=== PATIENT | female | born 1960 | race Caucasian/White ===

== ENCOUNTER 2018-02-23 04:34 | Inpatient (IN) | payer OTHER ==
[~2018-02-23] VITALS: Ht 157.5 cm; Wt 65.3 kg
--- NOTE | 2018-02-23 10:00 | NUR ---
WEB PRODUCER NOTES RECEIVED PATIENT DIRECT ADMIT FROM [facility]. PATIENT IS A/OX4, ABLE TO MAKE NEEDS KNOWN, AMBULATORY. DX OF CHOLECYSTITIS WITH CHOLELITHIASIS. NOT IN ANY FORM OF DISTRESSS, NO SOB. DENIED PAIN OR DISCOMFORT AT THIS TIME. COMPLAINTS OF N/V, WILL NOTIFY MD. IV ACCESS ON LEFT AC INTACT AND PATENT. KEPT PATIENT SAFE AND COMFORTABLE. ORIENTED PATIENT TO ROOM, TAUGHT HOW TO USE THE CALL LIGHT AND CALL LIGHT WITHIN REACH. ALL BELONGINGS CHECKED AND NOTED ON CHECKLIST BY NEHEMIAS AGARWAL. NO WOUND OR BRUISES PER PATIENT, REFUSED BODY CHECK AT THIS TIME, FAMILY AT BEDSIDE. BED IN LOW/LOCKED POSITION, SIDERAILS UPX2, BED ALARM ON. NOTIFIED MD FOR ADMITTING ORDERS. WILL CONTINUE TO MONITOR ACCORDINGLY.
[2018-02-23 10:23] VITALS: BP 124/83
[2018-02-23] MEDS ORDERED: MAG HYDROX/AL HYDROX/SIMETH 30 ML UDC PO PRN (10:30)
[2018-02-23] MEDS ORDERED: ACETAMINOPHEN 325 MG TABLET PO PRN (10:30)
[2018-02-23] MEDS ORDERED: Z GUARD REMEDY 2 OZ OINT TP PRN (10:30)
[2018-02-23] MEDS ORDERED: ONDANSETRON HCL/PF 4 MG/2 ML VIAL IVP PRN (10:30)
--- NOTE | 2018-02-23 10:45 | NUR ---
RN NOTES CHECKED ON PATIENT AND OFFERED NAUSEA MEDICATION. PATIENT STATED, SHE FELT BETTER AND NO NEED FOR NOW. WILL CONTINUE TO MONITOR ACCORDINGLY
[2018-02-23] MEDS: IV NS 0.9% 1,000 ML IV PRN ×2 (12:01→22:00)
[2018-02-23 12:51] LABS: CALCIUM, SERUM 8.5 mg/dL (8.5-10.1); CREATININE 0.9 mg/dL (0.6-1.3)
[2018-02-23] MEDS ORDERED: HYDROMORPHONE INJ 0.5 MG/0.5 ML SYRINGE IV PRN (13:00)
[2018-02-23] MEDS ORDERED: PIPERACILLIN /TAZOBACTAM 3.375 G in IV D5W 50 ML IV ONE (14:00)
--- NOTE | 2018-02-23 15:31 | NUR ---
LEFT AC IV ACCESS LEAKING, DC IV ACCESS. NO COMPLICATIONS. INSERTED NEW IV ACCESS ON RIGHT FOREARM GAUGE 20, INTACT AND PATENT.
[2018-02-23 16:00] VITALS: BP 108/67
--- NOTE | 2018-02-23 19:10 | NUR ---
RN CLOSING NOTES PATIENT IN STABLE CONDITION. ALL NEEDS ATTENDED AND PROVIDED. ALL DUE MEDICATIONS ADMINISTERED ORDERED. KEPT PATIENT SAFE AND COMFORTABLE. BED IN LOW/LOCKED POSITION. SIDERAILS UPX2, CALL LIGHT IN REACH. ENDORSED TO NIGHT RN FOR RENE.
--- NOTE | 2018-02-23 19:14 | NUR ---
RN MS OPENING NOTES RECEIVED PATIENT IN BED. ALERT AND ORIENTED X4, VERBALLY RESPONSIVE, ABLE TO MAKE NEEDS KNOWN. BREATHING EVEN AND UNLABORED. NO SOB NOTED. TOLERATING ROOM AIR. NO COMPLAINTS OF PAIN OR DISCOMFORT. NO N/V. IV ON RIGHT FOREARM #20 INTACT AND PATENT. SKIN DRY AND WARM TO TOUCH. AFEBRILE. FAMILY AT BEDSIDE. ALL OTHER NEEDS ATTENDED TO. SAFETY MEASURES IN PLACE. CALL LIGHT WITHIN REACH. WILL CONTINUE TO MONITOR.
--- NOTE | 2018-02-23 19:53 | NUR ---
RN MS NOTES DR. WEBB HERE IN UNIT, WITH THE FOLLOWING ORDERS: 1. HIDA SCAN IN AM 2. CBC AND CMP TONIGHT 3. CASE MANAGEMENT TO F/U IN AM FOR [place]. ORDERS NOTED AND CARRIED OUT.
[2018-02-23 20:00] VITALS: BP 118/78
--- NOTE | 2018-02-23 20:29 | NUR ---
RN MS NOTES PATIENT SIGNED CONSENT FORM FOR HIDA SCAN. PLACED IN CHART.
[2018-02-23 21:05] LABS: BASOPHILS % (AUTO) 0.5 % (0.0-2.0); EOSINOPHILS % (AUTO) 0.6 % (0.0-6.0); HEMATOCRIT 34 % (33-45); HEMOGLOBIN 11.6 g/dL (11.5-14.8); LYMPHOCYTES # (AUTO) 1.8 /CMM (0.8-4.8); LYMPHOCYTES % (AUTO) 30.1 % (20.0-44.0); MEAN CORPUSCULAR HGB CONC 34 g/dl (31.0-36.0); MEAN CORPUSCULAR VOLUME 90 fL (82-100); MONOCYTES # (AUTO) 0.3 /CMM (0.1-1.30); MONOCYTES % (AUTO) 5.7 % (2.0-12.0); NEUTROPHILS # (AUTO) 3.8 /CMM (1.8-8.9); NEUTROPHILS % (AUTO) 63.1 % (43.0-81.0); PLATELET COUNT (AUTO) 180 /CMM (150-450); RED BLOOD CELL COUNT(AUTO) 3.82 MIL/uL (4.0-5.2)
[2018-02-23 21:18] LABS: ALBUMIN 3.4 g/dL (3.4-5.0); BILIRUBIN,TOTAL 0.6 mg/dL (0.2-1.0); CALCIUM, SERUM 8.5 mg/dL (8.5-10.1); CREATININE 0.9 mg/dL (0.6-1.3); POTASSIUM 3.6 mmol/L (3.5-5.1); TOTAL PROTEIN, SERUM 6.4 g/dL (6.4-8.2)
[2018-02-23] MEDS: ZOLPIDEM TARTRATE 5 MG TABLET PO PRN (21:31)
[2018-02-23] MEDS ORDERED: PIPERACILLIN /TAZOBACTAM 3.375 G VIAL IV ONE (21:56)
[2018-02-23] MEDS: PIPERACILLIN /TAZOBACTAM 3.375 G in IV D5W 100 ML IV SCH (22:00)
--- NOTE | 2018-02-24 01:15 | NUR ---
RN MS NOTES GAVE TO NELSON HANEY FOR RENE. PATIENT IS SLEEPING IN STABLE CONDITION. KEPT NPO FOR HIDA SCAN.
--- NOTE | 2018-02-24 01:17 | NUR ---
MS/RN ASSUMED CARE FOR CONTINUITY OF CARE. PATIENT IS SLEEPING AT THIS TIME, APPEAR COMFORTABLE, NO SIGNS OF DISTRESS NOTED, CALL LIGHT IN REACH. WILL MONITOR.
[2018-02-24] MEDS ORDERED: PIPERACILLIN /TAZOBACTAM 3.375 G VIAL IV ONE (05:49)
[2018-02-24] MEDS: PIPERACILLIN /TAZOBACTAM 3.375 G in IV D5W 100 ML IV SCH ×3 (06:04→23:54)
--- NOTE | 2018-02-24 06:13 | NUR ---
MS/RN PATIENT IS SLEEPING AT THIS TIME, EASILY AROUSABLE, APPEAR COMFORTABLE, NO SIGNS OF DISTRESS NOTED, CALL LIGHT IN REACH. ALL NEEDS ATTENDED AT THIS TIME, WILL CONTINUE TO MONITOR.
[2018-02-24 07:26] LABS: BASOPHILS % (AUTO) 0.8 % (0.0-2.0); EOSINOPHILS % (AUTO) 1.2 % (0.0-6.0); HEMATOCRIT 33 % (33-45); HEMOGLOBIN 10.9 g/dL (11.5-14.8); LYMPHOCYTES % (AUTO) 40.1 % (20.0-44.0); MEAN CORPUSCULAR HGB CONC 34 g/dl (31.0-36.0); MEAN CORPUSCULAR VOLUME 90 fL (82-100); MONOCYTES # (AUTO) 0.3 /CMM (0.1-1.30); MONOCYTES % (AUTO) 5.5 % (2.0-12.0); NEUTROPHILS # (AUTO) 2.6 /CMM (1.8-8.9); NEUTROPHILS % (AUTO) 52.4 % (43.0-81.0); PLATELET COUNT (AUTO) 159 /CMM (150-450); RED BLOOD CELL COUNT(AUTO) 3.62 MIL/uL (4.0-5.2)
[2018-02-24 07:53] LABS: THYROID STIMULATING HORMONE 1.068 uIU/mL (0.358-3.74)
--- NOTE | 2018-02-24 07:56 | NUR ---
MS RN OPENING NOTE RECEIVED PATIENT IN BED. SLEEPING, EASILY AROUSED WITH VERBAL STIMULI. ORIENTED X4. ON ROOM AIR, TOLERATING WELL. IN NO APPARENT DISTRESS OR DISCOMFORT AT THIS TIME. RESPIRATIONS EVEN AND UNLABORED, DENIES PAIN AND SOB. PATIENT IS ABLE TO COMMUNICATE NEEDS. RIGHT FOREARM 20G IVC WITH FLUIDS RUNNING AT 125ML/HR, PATENT AND INTACT. KEPT CLEAN AND COMFORTABLE. ALL NEEDS ATTENDED, SAFETY MEASURES IN PLACE, BED IN LOW LOCKED POSITION, SIDE RAILS UP X2, CALL LIGHT WITHIN EASY REACH. WILL CONTINUE TO MONITOR.
[2018-02-24 08:00] VITALS: BP 100/61
[2018-02-24 08:03] LABS: ALBUMIN 3.1 g/dL (3.4-5.0); BILIRUBIN,TOTAL 0.6 mg/dL (0.2-1.0); CALCIUM, SERUM 8.5 mg/dL (8.5-10.1); PHOSPHORUS 3.6 mg/dL (2.5-4.9); POTASSIUM 3.4 mmol/L (3.5-5.1); TOTAL PROTEIN, SERUM 5.7 g/dL (6.4-8.2)
--- NOTE | 2018-02-24 08:58 | NUR ---
MS RN NOTE PATIENT HAS BEEN KEPT NPO SINCE MIDNIGHT FOR HIDA SCAN. PER RADIOLOGY, THE TEST WONT BE DONE UNTIL MONDAY. CHANGED THE ORDER TO STAT FOR IT TO BE PERFORMED TODAY. AWARE. CALLED RADIOLOGY SPOKE TO NILSA AT THE RADIOLOGY, WAS GIVEN JOSE LUIS'S NUMBER TO CALL AND CLARIFY. WILL FOLLOW UP.
--- NOTE | 2018-02-24 10:50 | NUR ---
PATIENT WAS PICKED UP BY BENNY FROM RADIOLOGY FOR HIDA SCAN.
[2018-02-24] MEDS: POTASSIUM CL. PREMIX PERIPHER. 50 ML IV SCH ×2 (12:15→22:05)
--- NOTE | 2018-02-24 12:24 | NUR ---
PATIENT IS BACK IN THE UNIT AFTER HIDA SCAN IN STABLE CONDITION. WILL CONTINUE TO MONITOR.
--- NOTE | 2018-02-24 12:30 | NUR ---
NM:HIDA SCAN WAS COMPLETED. TECH:RB.
[2018-02-24 16:00] VITALS: BP 118/82
--- NOTE | 2018-02-24 16:34 | NUR ---
PER DR. ALTAMIRANO'S ORDER, START PATIENT ON CLEAR LIQUIDS AND ADVANCE DIET TOLERATED, NOTED AND CARRIED OUT.
--- NOTE | 2018-02-24 18:25 | NUR ---
PATIENT WITH ORDERS OF 20MEQ POTASSIUM REPLACEMENT. DUE TO PATIENT BEING ABSENT FROM THE UNIT FOR DIAGNOSTIC TEST, INFUSION STARTED LATER THAN SCHEDULED, WHICH BROUGHT IT CLOSE TO WHEN PATIENT'S ANTIBIOTIC ZOSYN IS DUE. WAS ABLE TO INFUSE 1 BAG OF POTASSIUM. ZOSYN IS RUNNING CURRENTLY, SECOND BAG WILL ENDORSE TO NIGHT RN TO HANG THE SECOND BAG OF POTASSIUM. NOTIFIED PATTIE AT THE PHARMACY.
--- NOTE | 2018-02-24 18:31 | NUR ---
MS RN CLOSING NOTE PATIENT IN BED. ALERT ORIENTED X4. ON ROOM AIR, TOLERATING WELL. IN NO APPARENT DISTRESS OR DISCOMFORT AT THIS TIME. RESPIRATIONS EVEN AND UNLABORED, DENIES PAIN AND SOB. PATIENT IS ABLE TO COMMUNICATE NEEDS. RIGHT FOREARM 20G IVC WITH FLUIDS RUNNING AT 125ML/HR, PATENT AND INTACT. KEPT CLEAN AND COMFORTABLE. ALL NEEDS ATTENDED, SAFETY MEASURES IN PLACE, BED IN LOW LOCKED POSITION, SIDE RAILS UP X2, CALL LIGHT WITHIN EASY REACH. WILL ENDORSE TP [M NURSE FOR RENE.
--- NOTE | 2018-02-24 19:42 | NUR ---
MS/RN RECEIVE PATIENT AWAKE, ALERT, ORIENTED, COMFORTABLE, NO C/O PAIN, NO DISTRESS NOTED, CALL LIGHT IN REACH. WILL MONITOR.
[2018-02-24 20:00] VITALS: BP 114/74
[2018-02-24] MEDS: IV NS 0.9% 1,000 ML IV PRN (23:54)
[2018-02-25] MEDS: ZOLPIDEM TARTRATE 5 MG TABLET PO PRN
--- NOTE | 2018-02-25 01:02 | NUR ---
MS/RN PATIENT IS SLEEPING AT THIS TIME, APPEAR COMFORTABLE, BREATHING EVEN AND UNLABORED, NO DISTRESS NOTED, CALL LIGHT IN REACH. WILL CONTINUE TO MONITOR.
--- NOTE | 2018-02-25 06:25 | NUR ---
MS/RN UNABLE TO ADMINISTER ZOSYN IV AT THIS TIME, BAG IS LEAKING. WILL ENDORSE TO NEXT RN TO HAVE PHARMACY SEND BAG.
--- NOTE | 2018-02-25 06:45 | NUR ---
MS/RN PATIENT IS AWAKE, COMFORTABLE, NO C/O PAIN, ALL NEEDS ATTENDED AT THIS TIME, WILL CONTINUE TO MONITOR.
--- NOTE | 2018-02-25 07:17 | NUR ---
MS RN OPENING NOTE RECEIVED PATIENT IN BED. ALERT ORIENTED X4. ON ROOM AIR, TOLERATING WELL. IN NO APPARENT DISTRESS OR DISCOMFORT AT THIS TIME. RESPIRATIONS EVEN AND UNLABORED, DENIES PAIN AND SOB. PATIENT IS ABLE TO COMMUNICATE NEEDS. RIGHT FOREARM 20G IVC WITH FLUIDS RUNNING AT 125ML/HR, PATENT AND INTACT. KEPT CLEAN AND COMFORTABLE. ALL NEEDS ATTENDED, SAFETY MEASURES IN PLACE, BED IN LOW LOCKED POSITION, SIDE RAILS UP X2, CALL LIGHT WITHIN EASY REACH. WILL CONTINUE TO MONITOR.
[2018-02-25 07:33] LABS: CALCIUM, SERUM 8.8 mg/dL (8.5-10.1); POTASSIUM 3.6 mmol/L (3.5-5.1)
[2018-02-25 08:00] VITALS: BP 121/82
[2018-02-25] MEDS: PIPERACILLIN /TAZOBACTAM 3.375 G in IV D5W 100 ML IV SCH (08:01)
--- NOTE | 2018-02-25 12:40 | NUR ---
MS TAPE FOLDING MACHINE OPERATOR NOTE RECEIVED ORDER FOR DISCHARGE FROM DR. ALTAMIRANO. PATIENT IS MEDICALLY CLEARED, STABLE. VITAL SIGNS STABLE. IN NO APPARENT DISTRESS OR DISCOMFORT AT THIS TIME. RESPIRATIONS EVEN AND UNLABORED. DENIES PAIN AND SOB. [employer] UTILIZED TO PREPARE DISCHARGE PAPERWORK. REVIEWED ALL THE DISCHARGE INSTRUCTIONS WITH THE PATIENT. INSTRUCTED ON NEW MEDICATION PRESCRIPTIONS, FOLLOW UP CARE. PATIENT VERBALIZED UNDERSTANDING OF ALL INSTRUCTIONS. BELONGINGS CHECKED AND ACCOUNTED FOR. ALL DISCHARGE PAPERWORK WAS REVIEWED AND SIGNED, COPIES MADE PLACED IN CHART. PATIENT WAS OFFERED FLU VACCINE, REFUSED. SKIN WAS CHECKED PRIOR TO DISCHARGE, REMAINED INTACT DURING HOSPITALIZATION, PATIENT'S IV WAS REMOVED, TIP INTACT. ID BAND REMOVED. PATIENT WAS PICKED UP BY HER SON AND WAS ESCORTED DOWNSTAIRS BY DIANE AGARWAL.
== END 2018-02-25 13:00 | disposition home or self-care (01) | DRG 446 ==
LOC: MED 09:31
PROVIDERS: ADMIT Internal Medicine; ATTEND Internal Medicine
DX: K80.00 Calculus of gallbladder with acute cholecystitis without obstruction (principal)
CPT/HCPCS: 36415; 78226; 80048-TC; 80053-TC; 80061-TC; 83735-TC; 84100-TC; 84443-TC; 85025-TC; 87081-TC; A9537; G0378; J2543; J3480; J7030; J7050; J7060